=== PATIENT | female | born 2005 | race Caucasian/White ===

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

== ENCOUNTER 2025-08-11 17:09 | Emergency (ER) | payer BC, SELFPAY ==
[2025-08-11 17:09] VITALS: BP 143/81; PULSE 92; RESP 18; TEMP 37.2; O2SAT 100; BMI 38.2
[2025-08-11 17:55] VITALS: BP 123/71; PULSE 92; RESP 18; TEMP 37.1; O2SAT 96
--- NOTE | 2025-08-11 19:25 | EX.ED.DYSGE1 ---
HPI History of Present Illness Chief Complaint: Abscess Narrative Narrative: 20-year-old female who denies significant past medical history presents with her mother because of abscess to her right anterior thigh just distal to the inguinal fold that she has had over the last few days. She states that last Monday, the area began as a small, reddened area, more like a dot. She may have scratched the area. This was approximately 5 days ago. The area seems to be getting larger and more red. They state they went to urgent care 2 days ago and were put on Bactrim and Bactroban for intranasal ointment application. Since then, the area has gotten larger. There is more redness surrounding. Patient states she had a similar abscess remotely in her left axilla. She denies any fevers or chills, no nausea or vomiting. It hurts more when she walks because it is rubbing against her clothing. PFSH [facility] Medical History Non-smoker Acquired demyelinating disorder of peripheral nerve Migraines Home Medications ?Medication ?Instructions ?Recorded ?Last Taken ?Type meclizine 25 mg tablet (Dramamine 25 mg PO QDAY PRN 11/08/24 Unknown History (meclizine)) multivitamin 1 tab PO QDAY 11/08/24 Unknown History hydrocodone-acetaminophen 5-325mg 1 tab PO Q6H PRN pain 3 days #10 08/11/25 Unknown Rx 5mg-325mg tabs Allergy/AdvReac Type Severity Reaction Status Date / Time No Known Allergies Allergy Verified 08/11/25 17:11 Surgical History H/O inguinal hernia repair Social History Smoking Status: Never smoker alcohol intake: never substance use type: does not use ROS ROS ED ROS Narrative Review of systems is positive for abscess to right anterior thigh/groin. No fevers or chills, no nausea or vomiting. Increasing redness and increasing in size. Has had 2-1/2 days of antibiotics. No exacerbating or alleviating factors. No drainage. EXAM Physical Exam Narrative Exam Narrative: Afebrile. Vital signs noted. Nontoxic-appearing. Focused examination of the right anterior thigh more proximal to the inguinal fold does show a 1.5 cm fluctuant abscess. There is surrounding erythema but no crepitance. She appears neurovascularly intact distally. Const Vital Signs: 08/11/25 17:09 08/11/25 17:55 Temperature 99 F 98.7 F Temperature Source Oral Oral Pulse Rate 92 92 Respiratory Rate 18 18 Blood Pressure 143/81 H 123/71 H Blood Pressure Mean 101 88 Pulse Ox 100 96 Oxygen Delivery Method Room Air Room Air MDM MDM MDM Narrative Medical decision making narrative: Differential diagnosis includes but not limited to subcutaneous abscess with cellulitis versus infected sebaceous cyst versus hidradenitis suppurativa. This appears to be a single lesion. I have low suspicion for necrotizing fasciitis based on the history and physical as it does not support this. I discussed with her incision and drainage and the risk of continued infection and scarring and she acknowledges an understanding. She was given 1 [place] prior to incision and drainage. She was told that there may be only sanguinous material versus serosanguineous versus purulent discharge. See procedure note for details. Patient was told to remove the packing in 48 hours and not leave it in place any longer than this. She was told that she could remove it herself by wetting the area or return to the emergency department. She should have a wound check by her primary care provider in 2 days as well. She will finish the antibiotic she was given by urgent care. I did write her a prescription for 10 [place] tablets to take for breakthrough pain. At this point in time, I feel she can be discharged to follow-up. Return instructions were reviewed. Disposition is discharged home in improved and stable condition. History & Record Review Discussion w/independent historian: Patient and Family (Mother) Procedures Other Procedures Procedure(s): Incision and drainage: Betadine used as local cleanser. Lidocaine 1% approximately 5 mL used as local anesthetic, wheal raised. Stellate incision was made using a #11 blade. There is a large amount of initially serous drainage which turned purulent then turned sanguinous. Quarter inch iodoform packing was inserted lightly into the wound after the loculation and mild irrigation. It was double tailed. Patient tolerated procedure well. Discharge Plan Triage Chief Complaint: Abscess ED Provider: Jagdish Matthews Dx/Rx/DC Orders Clinical Impression: Abscess of right thigh, Encounter for incision and drainage procedure, Cellulitis Instructions: ED Abscess Incision And Drainage, ED Cellulitis Prescriptions: New hydrocodone-acetaminophen 5-325 mg tablet 1 tab PO Q6H PRN (Reason: pain) 3 Days Qty: 10 0RF No Action multivitamin Tablet 1 tab PO QDAY meclizine [Dramamine (meclizine)] 25 mg tablet 25 mg PO QDAY PRN Primary Care Provider: Joo Jones Referrals: Joo Jones MD [Primary Care Provider, Pediatrics] - 2 Days for wound check Activity Restrictions/Additional Instructions: Remove the packing from your right anterior thigh in 48 hours. Do not leave packing in place longer than 48 hours. Finish your antibiotic prescription that you started from urgent care. [place] as needed for breakthrough pain. Have your wound checked by your primary care provider in 2 days. Return to the emergency department with increased redness, new or worsening symptoms. Print Language: Tamazight Disposition Disposition: Home, Self Care
[2025-08-11] MEDS: HYDROcodone Bitartrate/Apap 5/325 Tablet PO (19:48)
[2025-08-11] MEDS: Lidocaine 1% (20 ml mdv) 20 ML Vial INFILT (19:48)
[2025-08-11 20:59] VITALS: BP 128/74; PULSE 78; RESP 18; TEMP 37; O2SAT 99
== END 2025-08-11 21:02 | disposition home or self-care (01) ==
PROVIDERS: Emergency Provider Emergency Medicine; PCP Pediatrics; Visit Provider Emergency Medicine
DX: L02.415 Cutaneous abscess of right lower limb (principal); L03.90 Cellulitis, unspecified
CPT/HCPCS: 10060; 99282